=== PATIENT | male | born 1975 | race Caucasian/White ===

== ENCOUNTER 2020-06-05 05:41 | Outpatient (CLI) | payer OTHER ==
[~2020-06-05] VITALS: Ht 182 cm; Wt 145.0 kg
[2020-06-05] MEDS ORDERED: PANT40TA52 PO (13:59)
[2020-06-05] MEDS ORDERED: DEXT20CA4 PO (13:59)
[2020-06-05] MEDS ORDERED: ATEN1TAB3 PO (13:59)
[2020-06-05] MEDS ORDERED: METF-397 PO (13:59)
[2020-06-05] MEDS ORDERED: SEMA1PEN SQ (13:59)
[2020-06-05] MEDS ORDERED: TOPI100T11 PO (13:59)
[2020-06-05] MEDS ORDERED: BUPR300T98 PO (13:59)
[2020-06-05] MEDS ORDERED: LORA10TA7 PO (13:59)
[2020-06-05] MEDS ORDERED: OXYC10TA7 PO (13:59)
[2020-06-05] MEDS ORDERED: TIZA4CAP8 PO (13:59)
[2020-06-05] MEDS ORDERED: AMLO10TA7 PO (13:59)
[2020-06-05] MEDS ORDERED: GBPN600T PO (13:59)
[2020-06-05] MEDS ORDERED: BUTA1TAB52 PO (13:59)
[2020-06-05] MEDS ORDERED: PROM25TA14 PO (13:59)
[2020-06-05] MEDS ORDERED: MULT-1136 PO (13:59)
[2020-06-05] MEDS ORDERED: LISI40TA PO (13:59)
[2020-06-05] MEDS ORDERED: SENN-259 PO (13:59)
[2020-06-05] MEDS ORDERED: MELO15TA39 PO (13:59)
[2020-06-05] MEDS ORDERED: SUMA50TA2 PO (13:59)
== END 2020-06-06 10:15 ==
LOC: PREOP 05:41
PROVIDERS: ATTEND Specialist
DX: Z01.818 Encounter for other preprocedural examination (principal)

== ENCOUNTER 2020-06-07 06:57 | Day surgery (SDC) | payer OTHER ==
[~2020-06-07] VITALS: Ht 182 cm; Wt 145.0 kg
[~2020-06-07 06:57] MED LIST: AMLO10TA7 PO; ATEN1TAB3 PO; BUPR300T98 PO; BUTA1TAB52 PO; DEXT20CA4 PO; GBPN600T PO; LISI40TA PO; LORA10TA7 PO; MELO15TA39 PO; METF-397 PO; MULT-1136 PO; OXYC10TA7 PO; PANT40TA52 PO; PROM25TA14 PO; SEMA1PEN SQ; SENN-259 PO; SUMA50TA2 PO; TIZA4CAP8 PO; TOPI100T11 PO
[2020-06-07] MEDS ORDERED: LIDOCAINE PF 1% 2 ML VIAL IR PRN (07:15)
[2020-06-07] MEDS ORDERED: MOXIFLOXACIN OPHTH SOLN 5 MG/ML 0.3 ML SYRINGE OP ONE (07:15)
[2020-06-07] MEDS ORDERED: TIMOLOL MALEATE 0.5% 5 ML (TIMOPTIC) BTL OU PRN (07:15)
[2020-06-07] MEDS ORDERED: POVIDONE (BETADINE) OPHTH SOLN 5% 30 ML OP ONE (07:15)
[2020-06-07 07:18] VITALS: BP 101/70
[2020-06-07] MEDS: TETRACAINE 0.5% OPHTH SOLN 4 ML BTL (SINGLE DOSE ONLY) OU PRN ×4 (07:26→07:42)
[2020-06-07] MEDS: PHENYLEPHRINE 10% OPHTH (NEO-SYN) 5 ML BTL OU SCH ×3 (07:32→07:42)
[2020-06-07] MEDS: CYCLOPENTOLATE 1% (CYCLOGYL) 2 ML DROPS OP SCH ×3 (07:32→07:42)
[2020-06-07] MEDS ORDERED: MIDAZOLAM 2 MG/2 ML (VERSED) VIAL ONE (07:54)
--- NOTE | 2020-06-07 08:14 | Ophthalmologist Pre-Op Note ---
Pre-Operative Progress Note H&P Reviewed The H&P was reviewed, patient examined and no changes noted. Date H&P Reviewed: Jun 07, 2020 Time H&P Reviewed: 08:14 Pre-Op Dx Cataract, Right Eye LEIGH SANTORO MD Jun 07, 2020 08:14
[2020-06-07] MEDS ORDERED: acetaZOLAMIDE ER 500 MG CAP (DIAMOX SEQUELS) PO ONE (08:30)
--- NOTE | 2020-06-07 08:38 | Ophthalmology Operative Report ---
Cataract removal/placement IOL PREOPERATIVE DIAGNOSIS: Cataract Right Eye POSTOPERATIVE DIAGNOSIS: Cataract Right Eye PROCEDURE: Cataract removal and placement of posterior chamber implant, right eye SURGEON: Antolin Santoro ANESTHESIA: Topical with sedation COMPLICATIONS: None ESTIMATED BLOOD LOSS: Minimal DESCRIPTION OF PROCEDURE: After proper informed consent was obtained, the patient, a 45 male, was taken to the Operating Room and the right eye was anesthetized with tetracaine. The right eye was then prepped and draped in the usual manner. A wire lid speculum was placed. A paracentesis was made at the left hand position. Preservative free lidocaine was injected into the anterior chamber followed by viscoelastic. A clear corneal incision was made in the temporal position. A capsulorrhexis was preformed and the central nuclear and cortical material were removed. The posterior capsule was polished and Constantine 18.0 AU00T0 IOL was placed into the capsular bag. The residual viscoelastic was aspirated and balanced saline solution was injected into the anterior chamber. Moxifloxacin was injected into the anterior chamber. The wound was checked and found to be water tight. The patient tolerated the procedure well without complications. ANTOLIN SANTORO MD Jun 07, 2020 08:38
[2020-06-07 08:41] VITALS: BP 104/66
--- NOTE | 2020-06-07 14:23 | Anesthesia-General Post-Op ---
MAC Patient Condition Mental Status/LOC: Same as Preop Cardiovascular: Satisfactory Nausea/Vomiting: Absent Respiratory: Satisfactory Pain: Controlled Complications: Absent Post Op Complications Complications None Follow Up Care/Instructions Patient Instructions None needed. Anesthesiology Discharge Order Discharge Order Patient was seen this morning after the procedure and he was doing well, no complaints, stable vital signs, no apparent adverse anesthesia problems. BC ABERNATHY DO Jun 07, 2020 14:23
== END 2020-06-07 08:45 ==
LOC: SDC 06:57
PROVIDERS: ATTEND Specialist
DX: H25.11 Age-related nuclear cataract, right eye (principal); E11.36 Type 2 diabetes mellitus with diabetic cataract; I10 Essential (primary) hypertension; F41.9 Anxiety disorder, unspecified; M06.9 Rheumatoid arthritis, unspecified; Z79.84 Long term (current) use of oral hypoglycemic drugs; Z79.899 Other long term (current) drug therapy
CPT/HCPCS: 82962

== ENCOUNTER 2020-06-14 07:29 | Day surgery (SDC) | payer OTHER ==
[~2020-06-14] VITALS: Ht 182 cm; Wt 147.7 kg
[2020-06-14 07:29] VITALS: BP 128/72
[2020-06-14] MEDS ORDERED: POVIDONE (BETADINE) OPHTH SOLN 5% 30 ML OP ONE (07:30)
[2020-06-14] MEDS ORDERED: TIMOLOL MALEATE 0.5% 5 ML (TIMOPTIC) BTL OU PRN (07:30)
[2020-06-14] MEDS ORDERED: MOXIFLOXACIN OPHTH SOLN 5 MG/ML 0.3 ML SYRINGE OP ONE (07:30)
[2020-06-14] MEDS ORDERED: LIDOCAINE PF 1% 2 ML VIAL IR PRN (07:30)
[2020-06-14] MEDS: TETRACAINE 0.5% OPHTH SOLN 4 ML BTL (SINGLE DOSE ONLY) OU PRN ×4 (07:44→08:08)
[2020-06-14] MEDS ORDERED: MIDAZOLAM 2 MG/2 ML (VERSED) VIAL ONE (07:46)
[2020-06-14] MEDS: PHENYLEPHRINE 10% OPHTH (NEO-SYN) 5 ML BTL OU SCH ×3 (07:53→08:08)
[2020-06-14] MEDS: CYCLOPENTOLATE 1% (CYCLOGYL) 2 ML DROPS OP SCH ×3 (07:53→08:08)
--- NOTE | 2020-06-14 08:21 | Ophthalmologist Pre-Op Note ---
Pre-Operative Progress Note H&P Reviewed The H&P was reviewed, patient examined and no changes noted. Date H&P Reviewed: Jun 14, 2020 Time H&P Reviewed: 08:21 Pre-Op Dx Cataract, Left Eye LEIGH SANTORO MD Jun 14, 2020 08:21
--- NOTE | 2020-06-14 08:42 | Ophthalmology Operative Report ---
Cataract removal/placement IOL PREOPERATIVE DIAGNOSIS: Cataract Left Eye POSTOPERATIVE DIAGNOSIS: Cataract Left Eye PROCEDURE: Cataract removal and placement of posterior chamber implant, left eye SURGEON: Antolin Santoro ANESTHESIA: Topical with sedation COMPLICATIONS: None ESTIMATED BLOOD LOSS: Minimal DESCRIPTION OF PROCEDURE: After proper informed consent was obtained, the patient, a 45 male, was taken to the Operating Room and the left eye was anesthetized with tetracaine. The left eye was then prepped and draped in the usual manner. A wire lid speculum was placed. A paracentesis was made at the left hand position. Preservative free lidocaine was injected into the anterior chamber followed by viscoelastic. A clear corneal incision was made in the temporal position. A capsulorrhexis was preformed and the central nuclear and cortical material were removed. The posterior capsule was polished and an Constantine 17.5 AU00T0 was placed into the capsular bag. The residual viscoelastic was aspirated and balanced saline solution was injected into the anterior chamber. Moxifloxacin was injected into the anterior chamber. The wound was checked and found to be water tight. The patient tolerated the procedure well without complications. ANTOLIN SANTORO MD Jun 14, 2020 08:42
[2020-06-14 08:50] VITALS: BP 135/88
[2020-06-14] MEDS ORDERED: acetaZOLAMIDE ER 500 MG CAP (DIAMOX SEQUELS) PO ONE (09:00)
--- NOTE | 2020-06-14 11:18 | Anesthesia-General Post-Op ---
MAC Patient Condition Mental Status/LOC: Same as Preop Cardiovascular: Satisfactory Nausea/Vomiting: Absent Respiratory: Satisfactory Pain: Controlled Complications: Absent Post Op Complications Complications None Follow Up Care/Instructions Patient Instructions None needed. Anesthesiology Discharge Order Discharge Order Patient is doing well, no complaints, stable vital signs, no apparent adverse anesthesia problems. No complications reported per nursing. YAYA PRYOR [employer] Jun 14, 2020 11:18
== END 2020-06-14 08:50 | disposition home or self-care (01) ==
LOC: SDC 07:29
PROVIDERS: ATTEND Specialist
DX: E11.36 Type 2 diabetes mellitus with diabetic cataract (principal); H25.12 Age-related nuclear cataract, left eye; I10 Essential (primary) hypertension; F41.9 Anxiety disorder, unspecified; M06.9 Rheumatoid arthritis, unspecified; K21.9 Gastro-esophageal reflux disease without esophagitis; E66.01 Morbid (severe) obesity due to excess calories; Z68.41 Body mass index [BMI] 40.0-44.9, adult; Z79.899 Other long term (current) drug therapy; Z79.84 Long term (current) use of oral hypoglycemic drugs; Z98.1 Arthrodesis status